=== PATIENT | female | born 1990 | race Caucasian/White ===

== ENCOUNTER 2017-12-11 14:12 | Emergency (ER) | payer OTHER ==
[~2017-12-11] VITALS: Ht 165.1 cm; Wt 67.1 kg
[2017-12-11 15:41] VITALS: BP 127/74
--- NOTE | 2017-12-11 17:29 | NUR ---
PATIENT AMBULATED TO [facility]
--- NOTE | 2017-12-11 17:40 | NUR ---
27F BIB SELF WITH C/O 10/10 "SHARP" CONSTANT RIGHT HAND PAIN, FELL FROM STAIRS WHILE HOLDING GROCERY BAGS X 1 WK; DISCOLORATION TO RIGHT HAND. SKIN AND CMS INTACT; PT DENIES ANY LOC; PT IS AOX4 WITH STEADY GAIT; RR ARE EVEN AND UNLABORED; NAD. VSS. AWAITING ER MD MARTÍNEZ.
[2017-12-11 19:01] VITALS: BP 141/81
== END 2017-12-11 19:00 | disposition home or self-care (01) ==
LOC: MED 14:12
DX: S62.396A Other fracture of fifth metacarpal bone, right hand, initial encounter for closed fracture (principal); I10 Essential (primary) hypertension; W10.9XXA Fall (on) (from) unspecified stairs and steps, initial encounter; Y93.01 Activity, walking, marching and hiking; Y92.89 Other specified places as the place of occurrence of the external cause; Y99.8 Other external cause status
CPT/HCPCS: 73130; 99284